=== PATIENT | female | born 2000 | race Two or more races ===

== ENCOUNTER 2024-06-15 14:18 | Emergency (ER) | payer MEDICARE ==
[~2024-06-15] VITALS: Ht 154.9 cm; Wt 52.6 kg
[2024-06-15 16:15] LABS: BASO % 0.3 % (0.0-1.0); EOS # 0.1 10^3/uL (0.0-0.5); EOS % 1.1 % (0.0-3.0); HEMATOCRIT 41.8 % (36.0-47.0); HEMOGLOBIN 13.3 g/dl (12.0-15.5); LYMPH # 2.6 10^3/uL (1.5-5.0); LYMPH % 30.2 % (24.0-44.0); MEAN CORPUSCULAR HEMOGLOBIN 25.5 pg (27.0-33.0); MEAN CORPUSCULAR HGB CONC 31.8 g/dl (32.0-36.5); MEAN CORPUSCULAR VOLUME 80.1 fl (80.0-96.0); MONO # 0.6 10^3/uL (0.0-0.8); MONO % 6.8 % (2.0-8.0); NEUTROPHILS # 5.3 10^3/uL (1.5-8.5); NEUTROPHILS % 61.1 % (36.0-66.0); PLATELET COUNT, AUTOMATED 311 10^3/uL (150-450); RED BLOOD COUNT 5.22 10^6/uL (4.00-5.40); WHITE BLOOD COUNT 8.7 10^3/uL (4.0-10.0)
[2024-06-15 16:19] LABS: APPEARANCE, URINE HAZY (CLEAR); BACTERIA, URINE AUTO NEGATIVE (NEGATIVE); BILIRUBIN, URINE AUTO NEGATIVE (NEGATIVE); BLOOD, URINE BLOOD NEGATIVE (NEGATIVE); COLOR, URINE YELLOW (YELLOW); GLUCOSE, URINE (UA) AUTO NEGATIVE (NEGATIVE); KETONE, URINE AUTO NEGATIVE (NEGATIVE); LEUKOCYTE ESTERASE, URINE AUTO NEGATIVE (NEGATIVE); MUCUS, URINE SMALL (NEGATIVE); NITRITE, URINE AUTO NEGATIVE (NEGATIVE); PROTEIN, URINE AUTO NEGATIVE (NEGATIVE); RBC, URINE AUTO 1 /HPF (0-3); SPECIFIC GRAVITY URINE AUTO 1.028 (1.002-1.035); SQUAMOUS EPITHELIAL CELL UR AU 6 /HPF (0-6); UROBILINOGEN, URINE AUTO 0.2 mg/dL (0.0-2.0); WBC, URINE AUTO 2 /HPF (0-3)
[2024-06-15 17:39] LABS: GC DNA AMPLIFICATION NEGATIVE (NEGATIVE)
[2024-06-15 18:16] VITALS: BP 119/62; TEMP 97.8; O2SAT 100
== END 2024-06-15 18:17 | disposition home or self-care (01) ==
LOC: M ED 14:18
DX: O34.81 Maternal care for other abnormalities of pelvic organs, first trimester (principal); Z3A.01 Less than 8 weeks gestation of pregnancy

== ENCOUNTER → 2024-08-21 | Outpatient (CLI) | payer MEDICAID, SELFPAY | LOC: M PLALAB 09:43 | PROVIDERS: ATTEND Nurse Practitioner Family | DX: Z31.430 Encounter of female for testing for genetic disease carrier status for procreative management (principal) ==

== ENCOUNTER → 2024-09-05 | Outpatient (CLI) | payer MEDICAID ==
[2024-09-05 17:52] LABS: HEMATOCRIT 35.7 % (36.0-47.0); HEMOGLOBIN 11.5 g/dl (12.0-15.5); MEAN CORPUSCULAR HEMOGLOBIN 25.8 pg (27.0-33.0); MEAN CORPUSCULAR HGB CONC 32.2 g/dl (32.0-36.5); PLATELET COUNT, AUTOMATED 291 10^3/uL (150-450); RED BLOOD COUNT 4.46 10^6/uL (4.00-5.40); WHITE BLOOD COUNT 11.8 10^3/uL (4.0-10.0)
[2024-09-05 18:52] LABS: HIV 1&2 SCREEN NEGATIVE (NEGATIVE)
[2024-09-05 19:00] LABS: HEPATITIS C VIRUS ABY INDEX < 0.02 INDEX (<0.8)
== END ==
LOC: M PLALAB 16:06
PROVIDERS: ATTEND Nurse Practitioner Family
DX: Z34.80 Encounter for supervision of other normal pregnancy, unspecified trimester (principal)

== ENCOUNTER → 2024-09-19 | Outpatient (CLI) | payer MEDICAID | LOC: M WHC 12:52 → M RAD 14:33 | PROVIDERS: ATTEND Nurse Practitioner Family | DX: Z34.92 Encounter for supervision of normal pregnancy, unspecified, second trimester (principal) ==

== ENCOUNTER → 2024-11-06 | Outpatient (REF) | payer MEDICAID, SELFPAY ==
[~2024-11-06] MED LIST: ACET-897 PO; PRENTAB9 PO
[2024-11-06 17:03] LABS: CREATININE,RANDOM URINE 122.1 MG/DL
[2024-11-06 18:13] LABS: GC DNA AMPLIFICATION NEGATIVE (NEGATIVE)
== END ==
LOC: M PLALAB 12:10
PROVIDERS: ATTEND Nurse Practitioner Family
DX: Z34.80 Encounter for supervision of other normal pregnancy, unspecified trimester (principal)

== ENCOUNTER → 2024-11-09 | Outpatient (CLI) | payer OTHER, MEDICAID | LOC: M RAD 06:46 | PROVIDERS: ATTEND Advanced Practice Midwife | DX: Z34.82 Encounter for supervision of other normal pregnancy, second trimester (principal); Z3A.25 25 weeks gestation of pregnancy ==

== ENCOUNTER 2024-11-25 18:20 | Emergency (ER) | payer MEDICAID ==
[~2024-11-25] VITALS: Ht 154.9 cm; Wt 66.2 kg
[2024-11-25 18:24] VITALS: BP 136/86; TEMP 98.7; O2SAT 98
== END 2024-11-25 18:27 | disposition admitted as inpatient to this hospital (09) ==
LOC: M ED 18:20
DX: Z53.21 Procedure and treatment not carried out due to patient leaving prior to being seen by health care provider (principal)

== ENCOUNTER 2024-11-25 18:31 | Outpatient (CLI) | payer MEDICAID ==
[~2024-11-25] VITALS: Ht 154.9 cm; Wt 66.5 kg
[2024-11-25 18:49] VITALS: BP 141/67
[2024-11-25 19:04] VITALS: BP 122/58
== END 2024-11-25 21:34 | disposition home or self-care (01) ==
LOC: M LDO 18:31
PROVIDERS: ATTEND Obstetrics & Gynecology
DX: O36.8120 Decreased fetal movements, second trimester, not applicable or unspecified (principal); O34.219 Maternal care for unspecified type scar from previous cesarean delivery; Z3A.27 27 weeks gestation of pregnancy
CPT/HCPCS: 59025; G0463

== ENCOUNTER → 2024-12-05 | Outpatient (CLI) | payer OTHER, SELFPAY | LOC: M PLALAB 11:25 | PROVIDERS: ATTEND Nurse Practitioner Family | DX: Z34.80 Encounter for supervision of other normal pregnancy, unspecified trimester (principal) ==

== ENCOUNTER → 2025-01-18 | Outpatient (CLI) | payer OTHER | LOC: M RAD 15:28 | PROVIDERS: ATTEND Obstetrics & Gynecology | DX: Z34.80 Encounter for supervision of other normal pregnancy, unspecified trimester (principal) ==

== ENCOUNTER 2025-01-21 14:25 | Inpatient (IN) | payer OTHER ==
[~2025-01-21] VITALS: Ht 154.9 cm; Wt 72.0 kg
[2025-01-21] MEDS: LR 1,000 ML IV SCH (00:40)
[2025-01-21 14:46] VITALS: BP 123/66
[2025-01-21 14:54] VITALS: BP 138/70
[2025-01-21] MEDS ORDERED: HOME MED LIST COMPLETE! XX SCH (15:00)
[2025-01-21 15:32] LABS: BASO % 0.2 % (0.0-1.0); EOS # 0.1 10^3/uL (0.0-0.5); EOS % 0.5 % (0.0-3.0); HEMATOCRIT 32.1 % (36.0-47.0); HEMOGLOBIN 9.8 g/dl (12.0-15.5); LYMPH # 1.9 10^3/uL (1.5-5.0); LYMPH % 18.6 % (24.0-44.0); MEAN CORPUSCULAR HEMOGLOBIN 23.5 pg (27.0-33.0); MEAN CORPUSCULAR HGB CONC 30.5 g/dl (32.0-36.5); MONO # 0.8 10^3/uL (0.0-0.8); MONO % 8.4 % (2.0-8.0); NEUTROPHILS # 7.1 10^3/uL (1.5-8.5); NEUTROPHILS % 71.1 % (36.0-66.0); PLATELET COUNT, AUTOMATED 288 10^3/uL (150-450); RED BLOOD COUNT 4.17 10^6/uL (4.00-5.40); WHITE BLOOD COUNT 9.9 10^3/uL (4.0-10.0)
[2025-01-21 15:50] LABS: TOTAL PROTEIN,RANDOM URINE 6.5 MG/DL (0.0-14.0)
[2025-01-21 15:51] LABS: URIC ACID 4.5 MG/DL (3.1-7.8)
[2025-01-21 15:53] LABS: LDH LACTATE DEHYDROGENASE 152 U/L (120-246)
[2025-01-21 15:54] LABS: ALT/SGPT 11 U/L (7.0-40); AST/SGOT 17 U/L (<34); BILIRUBIN,TOTAL 0.2 MG/DL (0.3-1.2); CREATININE FOR GFR 0.57 MG/DL (0.55-1.30); CREATININE,RANDOM URINE 73.3 MG/DL; GLOMERULAR FILTRATION RATE > 60.0 (>60)
[2025-01-21] MEDS ORDERED: OXYTOCIN INJ 10UNITS/ML 1ML VIAL IM PRN ×2 (17:25→21:25)
[2025-01-21] MEDS ORDERED: TRANEXAMIC ACID INJection 1,000 MG in NS 100 ML IV PRN (17:25)
[2025-01-21] MEDS ORDERED: LIDOCAINE 1% MDV 20ML VIAL INFIL PRN (17:25)
[2025-01-21] MEDS ORDERED: OXYTOCIN DRIP 30 UNITS in IV 1 EA IV PRN (17:25)
[2025-01-21] MEDS ORDERED: CARBOPROST TROMETHAMINE 250 MCG/ML AMP IM PRN ×2 (17:25→21:25)
[2025-01-21] MEDS ORDERED: LR 1,000 ML IV SCH (17:25)
[2025-01-21] MEDS ORDERED: METHYLERGONOVINE MALEATE 0.2MG/ML 1ML VIAL IM PRN (17:25)
[2025-01-21] MEDS: LACTATED RINGER'S 1000 ML IV STA (18:19)
[2025-01-21] MEDS: BICITRA 30ML SOLN UDC PO ONE (18:19)
[2025-01-21] MEDS: ceFAZolin SODIUM 2 GM in DEXTROSE 5% (D5W) ADV/MINI-BAG 50 ML IV ONE (18:19)
[2025-01-21] MEDS ORDERED: OXYTOCIN 30UNITS IN 0.9% NaCl 500ML IV BAG As Ordered ONE (18:55)
[2025-01-21] MEDS ORDERED: PHENYLephrine 500MCG 5ML (100MCG/ML) SYRINGE As Ordered ONE (18:55)
[2025-01-21] MEDS ORDERED: MORPHINE PRES-FREE INJ 10 MG/10 ML VIAL As Ordered ONE (18:55)
[2025-01-21] MEDS ORDERED: KETOROLAC 30 MG/ML 1ML VIAL As Ordered ONE (18:55)
[2025-01-21] MEDS ORDERED: ONDANSETRON 4MG 2ML VIAL As Ordered ONE (18:55)
[2025-01-21] MEDS ORDERED: ePHEDrine SULFATE 25 MG/5 ML(5MG/ML) SYRINGE As Ordered ONE (18:55)
[2025-01-21] MEDS ORDERED: ACETAMINOPHEN 1000MG/100ML IV BAG As Ordered ONE (18:57)
[2025-01-21 19:00] LABS: HIV 1&2 SCREEN NEGATIVE (NEGATIVE)
[2025-01-21] MEDS ORDERED: fentaNYL 100 MCG/2 ML INJECTION As Ordered ONE (19:04)
[2025-01-21 19:07] LABS: HEPATITIS C VIRUS ABY INDEX 0.03 INDEX (<0.8)
[2025-01-21 19:17] LABS: CORD GAS ABE A -1.5; CORD GAS HCO3 A 26.9 MMOL/L; CORD GAS O2 SAT A 53.1 %; CORD GAS PCO2 A 60.3 mmHg; CORD GAS PH A 7.268 UNITS; CORD GAS PO2 A 21.7 mmHg; CORD GAS SBC A 22.1 MMOL/L; CORD GAS TCO2 A 28.8 MMOL/L
[2025-01-21 19:19] LABS: CORD GAS ABE V -2.9; CORD GAS HCO3 V 23.3 MMOL/L; CORD GAS O2 SAT V 47.3 %; CORD GAS PCO2 V 45.7 mmHg; CORD GAS PH V 7.326 UNITS; CORD GAS PO2 V 19.6 mmHg; CORD GAS SBC V 20.8 MMOL/L; CORD GAS TCO2 V 24.7 MMOL/L
[2025-01-21] MEDS ORDERED: PERCOCET 5MG/325MG TAB PO PRN (19:35)
[2025-01-21] MEDS ORDERED: ONDANSETRON 4MG 2ML VIAL IV PRN ×2 (19:35→20:30)
[2025-01-21] MEDS ORDERED: RHOGAM 300MCG (1500IU) INJ IM SCH (19:35)
[2025-01-21] MEDS ORDERED: **NOTE PATIENT COMMENT** MISC XX SCH (20:30)
[2025-01-21] MEDS ORDERED: NALOXONE INJ 0.4MG/1ML VIAL IV PRN ×2 (20:30)
[2025-01-21] MEDS ORDERED: METOCLOPRAMIDE INJ 10MG/2ML VIAL IV PRN (20:30)
[2025-01-21] MEDS: SLF 3 ML SYR IV SCH (20:30)
[2025-01-21] MEDS ORDERED: PERCOCET 5MG/325MG TAB As Ordered ONE (20:42)
[2025-01-21] MEDS: PERCOCET 5MG/325MG TAB PO PRN (20:44)
[2025-01-21] MEDS: OXYTOCIN DRIP 30 UNITS in IV 1 EA IV SCH (20:48)
[2025-01-21 21:00] VITALS: TEMP 98.5
[2025-01-21] MEDS: METHYLERGONOVINE MALEATE 0.2MG/ML 1ML VIAL IM PRN (21:33)
[2025-01-21] MEDS: TRANEXAMIC ACID INJection 1,000 MG in NS 100 ML IV PRN (21:48)
[2025-01-21 22:15] VITALS: BP 139/85; O2SAT 98
[2025-01-21] MEDS: diphenhydrAMINE 50MG/ML VIAL IV PRN (22:25)
[2025-01-21 22:45] VITALS: BP 138/83; O2SAT 99
[2025-01-21 23:15] VITALS: BP 131/70; O2SAT 98
[2025-01-22] VITALS (8 sets, daily range): BP systolic 107–146; BP diastolic 55–75; O2SAT 97–100
[2025-01-22] MEDS: KETOROLAC 30 MG/ML 1ML VIAL IV SCH (00:40)
[2025-01-22 07:44] LABS: HEMATOCRIT 27.2 % (36.0-47.0); HEMOGLOBIN 8.6 g/dl (12.0-15.5); MEAN CORPUSCULAR HGB CONC 31.6 g/dl (32.0-36.5); PLATELET COUNT, AUTOMATED 279 10^3/uL (150-450); RED BLOOD COUNT 3.58 10^6/uL (4.00-5.40); WHITE BLOOD COUNT 17.9 10^3/uL (4.0-10.0)
[2025-01-22] MEDS: PRENATAL VITAMINS CHEWABLE TABLET PO SCH (08:32)
[2025-01-22] MEDS: IBUPROFEN 800 MG TAB PO SCH (20:01)
[2025-01-23 02:00] VITALS: BP 106/51; O2SAT 100
[2025-01-23 06:00] VITALS: BP 118/59; O2SAT 100
[2025-01-23] MEDS: DOCUSATE SODIUM 100MG CAPSULE PO PRN (08:29)
[2025-01-23] MEDS: MEASLES,MUMPS,RUBELLA VACCINE INJ (MMR-II) SC.IMMUN ONE (09:00)
[2025-01-23] MEDS ORDERED: OXYC1TAB23 PO (09:31)
[2025-01-23] MEDS ORDERED: COLA100C5 PO (09:31)
[2025-01-23] MEDS ORDERED: IBUP80TA PO (09:31)
[2025-01-23] MEDS: SIMETHICONE 80MG CHEW TAB PO PRN (13:56)
[2025-01-23] MEDS: BOOSTRIX VACCINE (TETANUS/DIPHTH/ACEL. PERTUSSIS) 0.5ML SYR IM.IMMUN ONE (13:58)
[2025-01-23] MEDS: FLUZONE VACCINE TRIVALENT PF(2024-25) 0.5ML SYRINGE IM.IMMUN ONE (14:04)
== END 2025-01-23 17:20 | disposition home or self-care (01) | DRG 773 ==
LOC: M LDO 14:25 → M LDI 17:28 → M OBS 21:41
PROVIDERS: ADMIT Advanced Practice Midwife; ATTEND Specialist
PROC: 10D00Z1 Extraction of Products of Conception, Low, Open Approach (ICD-10-PCS; principal; 2025-01-21 18:30)
DX: O60.14X0 Preterm labor third trimester with preterm delivery third trimester, not applicable or unspecified (principal); O34.211 Maternal care for low transverse scar from previous cesarean delivery; O36.8130 Decreased fetal movements, third trimester, not applicable or unspecified; Z3A.36 36 weeks gestation of pregnancy; O13.4 Gestational [pregnancy-induced] hypertension without significant proteinuria, complicating childbirth; Z37.0 Single live birth

== ENCOUNTER → 2025-01-21 | Outpatient (REF) | payer OTHER | LOC: M PLALAB 13:20 | PROVIDERS: ATTEND Obstetrics & Gynecology | DX: Z36.89 Encounter for other specified antenatal screening (principal); Z3A.36 36 weeks gestation of pregnancy ==

== ENCOUNTER 2025-03-10 13:57 | Emergency (ER) | payer OTHER ==
[~2025-03-10] VITALS: Ht 154.9 cm; Wt 60.4 kg
[~2025-03-10 13:57] MED LIST changes: +COLA100C5 PO; +IBUP80TA PO; +OXYC1TAB23 PO
[2025-03-10] MEDS ORDERED: AMOX875T2 PO (15:27)
[2025-03-10] MEDS: LIDOCAINE VISCOUS 2% SOLN 15ML UDC SSP ONE (15:35)
[2025-03-10] MEDS: KETOROLAC 60MG 2ML VIAL IM ONE (15:38)
[2025-03-10 15:47] VITALS: BP 142/74; TEMP 98; O2SAT 100
== END 2025-03-10 15:48 | disposition home or self-care (01) ==
LOC: M ED 13:57
DX: K01.1 Impacted teeth (principal); J45.909 Unspecified asthma, uncomplicated; D64.9 Anemia, unspecified; F17.290 Nicotine dependence, other tobacco product, uncomplicated; Z79.1 Long term (current) use of non-steroidal anti-inflammatories (NSAID); Z79.2 Long term (current) use of antibiotics
CPT/HCPCS: 96372; 99283; J1885

== ENCOUNTER 2025-06-14 13:53 | Emergency (ER) | payer OTHER ==
[~2025-06-14] VITALS: Ht 152.4 cm; Wt 58.0 kg
[~2025-06-14 13:53] MED LIST changes: +AMOX875T2 PO
[2025-06-14] MEDS ORDERED: MECL-86 PO (14:29)
[2025-06-14 19:35] LABS: KETONE, URINE AUTO RFX 1+ mg/dL (NEGATIVE); LEUKOCYTE ESTERASE UR AUTO RFX NEGATIVE (NEGATIVE); MUCUS, URINE RFX LARGE (NEGATIVE); NITRITE, URINE AUTO RFX NEGATIVE (NEGATIVE); RBC, URINE AUTO RFX 4 /HPF (0-3); SQUAM EPITHELIAL CELL UR AURFX 4 /HPF (0-6); WBC, URINE AUTO RFX 5 /HPF (0-3)
[2025-06-14 19:35] LABS: BASO # 0.0 10^3/uL (0.0-0.2); BASO % 0.3 % (0.0-1.0); EOS # 0.1 10^3/uL (0.0-0.5); EOS % 0.7 % (0.0-3.0); LYMPH # 2.6 10^3/uL (1.5-5.0); LYMPH % 24.0 % (24.0-44.0); MONO # 0.9 10^3/uL (0.0-0.8); MONO % 8.0 % (2.0-8.0); NEUTROPHILS # 7.2 10^3/uL (1.5-8.5); NEUTROPHILS % 66.7 % (36.0-66.0); PLATELET COUNT, AUTOMATED 325 10^3/uL (150-450)
[2025-06-14 20:06] LABS: CALCIUM LEVEL 8.6 MG/DL (8.5-10.1); CARBON DIOXIDE LEVEL 24 MMOL/L (20-31); CHLORIDE LEVEL 102 MMOL/L (98-107); CREATININE FOR GFR 0.58 MG/DL (0.55-1.30); GLOMERULAR FILTRATION RATE > 90.0 (>60); POTASSIUM SERUM 3.7 MMOL/L (3.5-5.1); SODIUM LEVEL 138 MMOL/L (136-145)
[2025-06-14 20:18] LABS: HCG, SERUM QUANTITATIVE 77275.3 MIU/ML (<4.2)
[2025-06-14] MEDS: NS (Normal Saline) 0.9% 1,000 ML IV ONE (20:28)
[2025-06-14] MEDS: ONDANSETRON 4MG 2ML VIAL IV ONE (20:28)
[2025-06-14] MEDS ORDERED: UNIS25TA3 PO (22:26)
[2025-06-14] MEDS ORDERED: PYRI25TA2 PO (22:26)
[2025-06-14] MEDS ORDERED: ONDA-282 PO (22:26)
[2025-06-14 22:33] VITALS: BP 154/66; TEMP 98.3; O2SAT 99
== END 2025-06-14 22:40 | disposition home or self-care (01) ==
LOC: M ED 13:53
DX: O21.8 Other vomiting complicating pregnancy (principal); Z3A.01 Less than 8 weeks gestation of pregnancy; Z79.899 Other long term (current) drug therapy
CPT/HCPCS: 76801; 80048; 81001; 84702; 85025; 93976; 96361; 96374; 99283; J2405

== ENCOUNTER → 2025-08-19 | Outpatient (CLI) | payer OTHER ==
[~2025-08-19] MED LIST changes: +MECL-86 PO; +ONDA-282 PO; +PYRI25TA2 PO; +UNIS25TA3 PO
[2025-08-19 15:17] LABS: PLATELET COUNT, AUTOMATED 332 10^3/uL (150-450)
[2025-08-19 15:47] LABS: TOTAL PROTEIN,RANDOM URINE 12.6 MG/DL (0.0-14.0)
[2025-08-19 15:50] LABS: LDH LACTATE DEHYDROGENASE 142 U/L (120-246)
[2025-08-19 15:51] LABS: ALT/SGPT < 9 U/L (7.0-40); AST/SGOT 13 U/L (<34); CREATININE FOR GFR 0.53 MG/DL (0.55-1.30); GLOMERULAR FILTRATION RATE > 90.0 (>60)
[2025-08-19 16:21] LABS: Trichomonas vaginalis (AMP) NOT DETECTED (NEGATIVE)
[2025-08-19 16:24] LABS: HIV 1&2 SCREEN NEGATIVE (NEGATIVE)
[2025-08-19 16:32] LABS: HEPATITIS C VIRUS ABY INDEX < 0.02 INDEX (<0.8)
[2025-08-19 16:44] LABS: GC DNA AMPLIFICATION NEGATIVE (NEGATIVE)
[2025-08-21 12:51] LABS: T PALLIDUM ANTIBODIES POSITIVE (NEGATIVE)
[2025-08-21 13:50] LABS: RPR NON-REACTIVE (NON-REACTIVE)
== END ==
LOC: M PLALAB 13:59
PROVIDERS: ATTEND Nurse Practitioner Family
DX: O09.899 Supervision of other high risk pregnancies, unspecified trimester (principal); Z87.59 Personal history of other complications of pregnancy, childbirth and the puerperium; Z3A.16 16 weeks gestation of pregnancy